=== PATIENT | male | born 1990 | race American Indian/Alaskan Native ===

== ENCOUNTER 2019-07-21 18:08 | Emergency (ER) | payer SELFPAY ==
[2019-07-21 20:11] VITALS: BP 131/75
--- NOTE | 2019-07-21 20:35 | Emergency Department Report ---
Chief Complaint: Dental/Oral Stated Complaint: ABSCESS TOOTH Time Seen by Provider: 07/21/19 20:21 - HPI History of Present Illness: Pt reports having an crack on right lower molar. Taken otc pain meds and use ora gel. He currently has no pain. No facial swelling no fever. - ROS Review of Systems: Toothache Cracked tooth - Exam Vital Signs: Vital Signs 07/21/19 20:09 Temperature 98.5 F Pulse Rate 62 Respiratory 18 Rate Blood Pressure 131/75 O2 Sat by Pulse 100 Oximetry Physical Exam: Awake aret and oriented x 3. Resp easy and unlabored S1 S2 regular. Moist mucous membranes No trismus Oral exam: right lower molar no gum swelling no redness no s/s of abscess. NO FACIAL SWELLING. Skin warm dry intact gait steady MSE screening note: Focused history and physical exam performed. Due to findings the following was ordered: ED Medical Decision Making - Medical Decision Making Toothache at home no dental at this time. No facial swelling no gum redness no s/s of abscess Pt instruct to Follow up with Dentist Pt given dental referral. ED Disposition for MSE Clinical Impression: Toothache Disposition: TO HOME OR SELFCARE Is pt being admited?: No Does the pt Need Aspirin: No Condition: Stable Instructions: Toothache (ED) Additional Instructions: Continue with over the counter medications that are relieving your pain Folllow up with Dental as soon as possible Follow up with your PCP OR [facility] IN 3-5 DAYS Time of Disposition: 20:37
== END 2019-07-21 20:30 | disposition home or self-care (01) ==
LOC: ED 18:08
DX: K08.89 Other specified disorders of teeth and supporting structures (principal)
CPT/HCPCS: 99282